=== PATIENT | female | born 1965 | race Caucasian/White ===

== ENCOUNTER 2020-08-15 17:30 | Inpatient (IN) | payer MEDICAID ==
[~2020-08-15] VITALS: Ht 160 cm; Wt 130.3 kg
[2020-08-15] MEDS ORDERED: DESYREL 50MG50 MG PO (17:49)
[2020-08-15] MEDS ORDERED: FOLIC ACID 11 MG/TA1 PO (17:51)
[2020-08-15] MEDS ORDERED: SYNTHROID 0.0.025 MG PO (17:51)
[2020-08-15] MEDS ORDERED: ALDACTONE50 MG PO (17:52)
[2020-08-15] MEDS ORDERED: KLOR-CON M1010 MEQ PO (17:53)
[2020-08-15] MEDS ORDERED: LASIX 20MG TABL20 MG PO (17:53)
[2020-08-15] MEDS ORDERED: NYSTATIN POWDER15 GM TOP (17:53)
[2020-08-15 17:54] VITALS: BP 115/48; PULSE 77; TEMP 98.6
[2020-08-15] MEDS ORDERED: GLUCOPHAGE500 MG/TAB PO (17:54)
[2020-08-15] MEDS ORDERED: PROZAC 20MG20 MG PO (17:55)
[2020-08-15] MEDS ORDERED: LIPITOR 40MG TA40 MG PO (17:55)
--- NOTE | 2020-08-15 19:30 | NUR ---
CALLED [facility] TO CONFIRM A NEGATIVE COVID RESULT. PATIENT TESTED NEGATIVE FOR COVID ON 08/11/20.
[2020-08-15 19:32] LABS: BASO # 0.1 (0.0-0.2); EOS # 0.1 (0.0-0.7); EOS % 2.7 % (0-4.0); GRAN # 3.4 (1.4-6.5); GRAN % 64.4 % (42.2-75.2); LYMPH # 0.9 (1.2-3.4); LYMPH % 17.3 % (20.0-51.0); MEAN CELL VOLUME 103 fl (80.0-100.0); MEAN CORPUSCULAR HGB CONC 31 g/dl (33.0-37.0); MEAN PLATELET VOLUME 9.4 fl (7.4-10.4); MONO # 0.8 (0.1-0.6); MONO % 14.6 % (1.7-9.3); PLATELET COUNT 136 K/mm3 (130-400); RED BLOOD COUNT 2.79 M/mm3 (4.10-5.30); REDCELL DISTRIBUTION WIDTH-CV 16.5 % (11.5-14.5)
[2020-08-15 19:36] LABS: HEMATOCRIT 28.8 % (37.0-47.0); HEMOGLOBIN 8.9 g/dl (12.5-16.0); MEAN CORPUSCULAR HEMOGLOBIN 32 pg (27.0-31.0)
[2020-08-15 19:41] LABS: ALBUMIN 2.7 gm/dL (3.5-5.0); CALCIUM 8.6 mg/dL (8.4-10.2); CREATININE, serum 0.83 (0.52-1.25); POTASSIUM 4.7 mmol/L (3.4-5.0); TOTAL PROTEIN 6.8 gm/dL (6.4-8.2)
[2020-08-15 20:00] VITALS: BP 96/54; PULSE 80; TEMP 97.9
[2020-08-15 20:06] LABS: INR 1.2 (0.8-3.0); PROTHROMBIN TIME 13.2 SECONDS (9.7-12.8)
--- NOTE | 2020-08-15 21:00 | NUR ---
REPORT GIVEN BY RADHA PRIETO. PATIENT DROWSY BUT ORIENTED. SEBLE IN TO SEE PATIENT. PATIENT HAS GENERALIZED EDEMA AND A DISTENDED ABDOMEN. VSS. CALLED RT TO GET PATIENT ON A BIPAP.
--- NOTE | 2020-08-15 21:30 | NUR ---
RT UP TO PUT PATIENT ON BIPAP. PATIENT SLEEPING AND TOLERATING WELL.
[2020-08-16] VITALS (9 sets, daily range): BP systolic 92–163; BP diastolic 43–63; PULSE 68–75; TEMP 97.5–98.7
--- NOTE | 2020-08-16 07:40 | NUR ---
PATIENT GETTING BEDSIDE ECHO
--- NOTE | 2020-08-16 08:00 | NUR ---
PATIENT IS ORIENTED BUT DROWSY THIS AM. VSS WITH TELE INPLACE. PATIENT IS OFF HER HS BI-PAP AND PLACED ON 2L PER NC DURING THE DAY WITH SATS IN MID 90'S. PATIENT DENIES SOA OR CHEST PAIN AT REST. PATIENT'S MOBILITY IS LIMITED BY SEVERE ABD ASCITES AND UPPER & LOWER EXTREMITY EDEMA. GOLDMAN TO DD WITH MOD AMOUNTS OF CLEAR YELLOW URINE NOTED. PATIENT HAS HX OF CHF & COPD. PATIENT ALSO HAS HX OF SEIZURES AND REPORTS SHE TAKES KEPPRA. CALLED PATIENT'S [facility] TO CLARIFY DOSE & FREQUENCY. THIS WAS SHARED WITH HOSPITALIST AND UPDATED IN THE COMPUTER. PATIENT IS SCHEDULED FOR AN ECHO, EGD & PARCENTESIS TODAY. NEURO CHECKS Q4H. AM BS WAS 104, NO SSI REQUIRED. NPO FOR PROCEDURES. AM MEDS GIVEN WITH SIPS. HEAD TO TOE ASSESSMENT COMPLETE. NO OTHER NEEDS. CALL LIGHT IN REACH.
[2020-08-16] MEDS ORDERED: KEPPRA250 MG PO (08:39)
--- NOTE | 2020-08-16 09:57 | NUR ---
HOSPITALIST TEAM AT BEDSIDE ROUNDING.
--- NOTE | 2020-08-16 10:56 | NUR ---
MARIXA met with the patient to discuss discharge plan. The patient lives in [place] with her daughter, Denita Mendez (ph#[phone]), son-in-law (Kemar), sister (Yomaira), and [id number]-[id number] (Garry). She reports needing some assistance with bathing and tolieting and has a walker, wheelchair, bedside commode, and home oxygen from [facility]. She state that she is normally on 2 liters. The patient does not have a primary care provider. MARIXA discussed getting established with a PCP. The patient states states that she would prefer to get one in [place] over [place]. MARIXA provided the patient with a list of the different providers in [place]. The patient states that she does not have a preference and is okay with being set up with anyone. She receives her medications from [facility] and she reports occasional difficulties affording her meds. She states she receives around $700 something for disability. The patient does not have a DPOA-HC, but she was interested in completing one. MARIXA provided the form. The patient designated her daughter, Denita. MARIXA and WINDOW GLAZIER HELPERMike, witnessed the patient's signature. The patient's daughter, Denita, then Facetimed the patient. MARIXA reviewed the above information with Denita. Denita is agreeable with being the patient's DPOA-HC. She gave SW her 's phone number in case we cannot get ahold of her on the others: [phone]. MARIXA provided the patient with the original DPOA-HC and copies. MARIXA placed a copy in the patient's chart. The patient would like to return home upon discharge. Denita reports that her and their family are able to provide assistance to the patient. PT/OT have been ordered. SW to continue to follow.
--- NOTE | 2020-08-16 11:00 | NUR ---
STAFF SETTING UP FOR BEDSIDE PARACENTESIS
[2020-08-16 12:49] LABS: PERITONEAL FLUID RBC 2000 /mm3 (0-0)
--- NOTE | 2020-08-16 14:25 | NUR ---
PATIENT BACK IN ROOM FROM EGD. ORIENTED BUT A LITTLE DROWSY. VSS. DENIES PAIN. HEAD TO TOE ASSESSMENT COMPLETE. PATIENT RESTING IN BED.
[2020-08-16 18:22] LABS: FOLATE (FOLIC ACID) 7.6 ng/mL (7.0-31.4)
--- NOTE | 2020-08-16 19:22 | NUR ---
RECEIVED CHANGE OF SHIFT REPORT FROM DAY SHIFT NURSESURYA.
--- NOTE | 2020-08-16 21:50 | NUR ---
RAC IV SITE WITH EDEMA, SKIN SLIGHTLY WARM TO TOUCH WITH C/O PAIN WHEN AREA PALPATED. ATTEMPTED RESTART IF IV SITE WITH X1 UNSUCCESSFUL VENIPUNCTURE BY THIS NURSE. X2 UNSUCCESSFUL VENIPUNCTURE ATTEMPTS BY HOUSE SUPERVISER. REMAINING IV SITE TO L WRIST WITH SANDOSTATIN INFUSING WITH NO PROBLEMS AT THIS TIME.
[2020-08-17 04:00] VITALS: BP 121/54; PULSE 84; TEMP 98.6
--- NOTE | 2020-08-17 06:56 | NUR ---
CHANGE OF SHIFT REPORT GIVEN TO DAY SHIFT NURSEJANE.
--- NOTE | 2020-08-17 07:00 | NUR ---
Lying in bed with eyes open. Denies pain at this time. Exp wheezes noted in lung tafoya. Patient says that she was suppose to wear the Bipap but she is not able to tolerate it. Is on oxygen at 2L/NC. Patient has 4+ edema noted to abd. Redness noted under pannus. 3+ edema noted to bilat lower extremities, patient says that she has always had the lower extremity and abd swelling. Pickard to dependent drainage. Patient repositioned in bed. Denies additional needs at this time.
[2020-08-17 07:09] LABS: MEAN CELL VOLUME 102 fl (80.0-100.0); MEAN CORPUSCULAR HGB CONC 31 g/dl (33.0-37.0); MEAN PLATELET VOLUME 9.9 fl (7.4-10.4); PLATELET COUNT 141 K/mm3 (130-400); RED BLOOD COUNT 2.35 M/mm3 (4.10-5.30); REDCELL DISTRIBUTION WIDTH-CV 16.3 % (11.5-14.5)
[2020-08-17 07:26] LABS: ALBUMIN 2.5 gm/dL (3.5-5.0); BILIRUBIN,TOTAL 0.9 mg/dL (0.0-1.0); CALCIUM 8.2 mg/dL (8.4-10.2); CREATININE, serum 0.84 (0.52-1.25); POTASSIUM 4.2 mmol/L (3.4-5.0); TOTAL PROTEIN 5.8 gm/dL (6.4-8.2)
[2020-08-17 07:29] LABS: HEMOGLOBIN 7.4 g/dl (12.5-16.0); MEAN CORPUSCULAR HEMOGLOBIN 31 pg (27.0-31.0)
[2020-08-17 08:00] VITALS: BP 130/51; PULSE 72; TEMP 98.7
--- NOTE | 2020-08-17 11:30 | NUR ---
Sitting up in chair watching TV and talking on cell phone. Denies pain. Wants to get back in bed after lunch. Denies additional needs at this time.
[2020-08-17 11:43] VITALS: BP 143/61; PULSE 68; TEMP 98.5
--- NOTE | 2020-08-17 12:11 | NUR ---
Patient assisted from chair to bed with assist of one and use of walker. Gait slow and steady. Patient requires full assist in getting legs into bed. Assisted to comfortable position in the bed. Patient remains on phone with her daughter. Denies needs at this time.
--- NOTE | 2020-08-17 15:06 | NUR ---
Patient IV in left wrist leaking. Due to multiple unsuccessful attempts through night anesthesia contacted to come start IV. Anesthesia in room at this time.
--- NOTE | 2020-08-17 15:20 | NUR ---
SW reviewed PT and PT recommended physical therapy. SW provided patient with options. Choices contacted waiting on responses from [facility], [facility], and [facility]. SW will continue to follow.
--- NOTE | 2020-08-17 15:35 | NUR ---
Keron Balderrama CRNA, able to get 20 gauge in left upper arm. Dc'd IV to left wrist, see intervention. Patient lying in bed talking on phone. Denies pain or needs at this time.
[2020-08-17 15:45] VITALS: BP 136/55; PULSE 67; TEMP 98
--- NOTE | 2020-08-17 18:12 | NUR ---
Sitting up in bed watching TV. Ate all of her supper. Denies pain or needs at this time.
[2020-08-17 19:49] VITALS: BP 127/46; PULSE 69; TEMP 98.4
--- NOTE | 2020-08-17 20:30 | NUR ---
Pt. laying in bed at this time. Pt. is A&OX3, assessment complete. IV to lt. upper arm patent, Sandostatin infusing per orders. Pt. denies pain. Pt. repositioned for comfort. Pt. denies further needs, call light within reach.
[2020-08-18] VITALS (7 sets, daily range): BP systolic 105–132; BP diastolic 36–48; PULSE 64–76; TEMP 97.9–98.7
[2020-08-18 06:02] LABS: BASO # 0.1 (0.0-0.2); BASO % 1.2 % (0.0-2.0); EOS # 0.2 (0.0-0.7); EOS % 3.1 % (0-4.0); GRAN # 3.3 (1.4-6.5); GRAN % 63.9 % (42.2-75.2); LYMPH # 0.8 (1.2-3.4); LYMPH % 15.7 % (20.0-51.0); MEAN CELL VOLUME 100 fl (80.0-100.0); MEAN CORPUSCULAR HGB CONC 31 g/dl (33.0-37.0); MONO # 0.8 (0.1-0.6); MONO % 15.7 % (1.7-9.3); PLATELET COUNT 144 K/mm3 (130-400); RED BLOOD COUNT 2.53 M/mm3 (4.10-5.30); REDCELL DISTRIBUTION WIDTH-CV 16.5 % (11.5-14.5)
[2020-08-18 06:03] LABS: HEMATOCRIT 25.4 % (37.0-47.0); HEMOGLOBIN 7.9 g/dl (12.5-16.0); MEAN CORPUSCULAR HEMOGLOBIN 31 pg (27.0-31.0)
--- NOTE | 2020-08-18 06:08 | NUR ---
Pt. slept well through the night. Pt. denies pain or other needs, call light within reach.
[2020-08-18 06:11] LABS: CALCIUM 7.8 mg/dL (8.4-10.2); CREATININE, serum 0.77 (0.52-1.25); POTASSIUM 4.2 mmol/L (3.4-5.0)
--- NOTE | 2020-08-18 07:27 | NUR ---
Lying in bed with eyes open. Alert and oriented x4. Denies pain. Says that she did not sleep well last night because her allergies are acting up and her eyes were itching. Patient would like to see if she can get some allergy medication ordered for her to take daily, explain we will discuss this with the provider when they make rounds. Patient still has edema to abd, 4+, and bilat lower ext, +3. Pickard to dependent drainage draining clear yellow urine. Oxygen on at 2L/NC. Discuss with the patient that her CO2 level was elevated and that we need to try the Bipap. Patient says that she is willing to try the Bipap after breakfast. Patient says that she was too frustrated last night to use the Bipap due to her eyes itching. Patient denies additional needs at this time.
--- NOTE | 2020-08-18 08:26 | NUR ---
RT in room and applies Bipap. Encourage patient to wear as long as she can tolerate. Patient verbalizes understanding and denies needs.
--- NOTE | 2020-08-18 09:49 | NUR ---
Patient lying in bed with eyes closed. Remains on Bipap at this time. No signs or symptoms of discomfort noted at this time.
--- NOTE | 2020-08-18 11:34 | NUR ---
Patient remains resting in bed with eyes closed on Bipap. No signs or symptoms of discomfort noted at this time.
--- NOTE | 2020-08-18 12:54 | NUR ---
Patient daughter calls to get update. Update provided. Phone provided to the patient so she can talk to her daughter. Patient sitting up in bed watching TV. Denies pain or needs at this time. Oxygen is on at 2L/NC.
--- NOTE | 2020-08-18 14:23 | NUR ---
Patient requests to get up and use BSC. Patient assisted out of bed with assist of two and use of walker. Patient initially had hard time sitting up on edge of bed. Patient has extra large soft formed brown BM. Patient cleaned. Patient ambulates to chair. Assisted to comfortable position in the recliner. Bed linens were changed. Window blinds opened. Patient says that she feels better after she was able to get some sleep. Patient says that she knows when she goes home she will need to get up in the morning and get out of bed and go into another room so that she is not staying in bed all day. Patient says that she lives with her daughter, son, and brother and they will all be willing to help her get up and move around the house. Patient denies needs at this time.
--- NOTE | 2020-08-18 16:29 | NUR ---
Patient requests to get back in bed. Patient stands with assist of one and standby assist of one. Patient uses walker to transfer to bed. Assisted to comfortable position in the bed. Oxygen on at 2L/NC. Patient denies needs at this time.
--- NOTE | 2020-08-18 17:15 | NUR ---
Patient says that her allergies are bothering her and her eyes keep watering. Asks if Dr. Ludwig placed the order for Benadryl and if so she would like some. Review orders and do not see that the Benadryl was ordered. Explained that I would discuss with the provider and see what we could do. Contacted LEXUS Wood, and she will review and let us know.
--- NOTE | 2020-08-18 17:34 | NUR ---
Administer Bendadryl and Claritin as prescribed. Explain to the patient that Benadryl was a one time order and the Claritin will be given daily. Patient verbalizes understanding and denies further needs.
--- NOTE | 2020-08-18 21:09 | NUR ---
Pt. laying in bed at this time. Pt. is A&OX3, assessment complete. INT to lt. upper arm patent. Pickard catheter to DD, clear yellow urine noted. Pt. denies pain or other needs, call light within reach.
[2020-08-19 01:28] VITALS: BP 101/41; PULSE 62; TEMP 98.7
[2020-08-19 05:14] VITALS: BP 102/34; BP 102/43; PULSE 67; TEMP 97.8
--- NOTE | 2020-08-19 08:00 | NUR ---
PATIENT IS A&O. VSS WITH TELE INPLACE. PATIENT ON BI-PAP AT HS, NOW OFF AND ON 2L PER NC WITH SATS IN MID 90'S. PATIENT DENIES SOA. A&P LUNG BASES DEMINISHED. NO COUGH NOTED. ABD DISTENDED WITH NOTED ASCITES AND +3 BLE EDEMA. +1 PEDAL PULSES. LEFT UA IV TO INT. GOLDMAN TO DD WITH MOD AMOUNTS OF CLEAR YELLOW URINE NOTED. SEIZURE PADS INPLACE DUE TO HX. PATIENT ON KEPPRA. HEAD TO TOE ASSESSMENT COMPLETE. AM MEDS GIVEN. PT/OT CONSULTED. NO OTHER NEEDS AT THIS TIME. CALL LIGHT IN REACH.
[2020-08-19 08:42] LABS: MEAN CELL VOLUME 101 fl (80.0-100.0); MEAN CORPUSCULAR HGB CONC 32 g/dl (33.0-37.0); MEAN PLATELET VOLUME 9.8 fl (7.4-10.4); PLATELET COUNT 144 K/mm3 (130-400); RED BLOOD COUNT 2.68 M/mm3 (4.10-5.30); REDCELL DISTRIBUTION WIDTH-CV 16.6 % (11.5-14.5)
[2020-08-19 08:48] VITALS: BP 109/24; PULSE 63; TEMP 98.8
[2020-08-19 08:51] LABS: ALBUMIN 2.2 gm/dL (3.5-5.0); BILIRUBIN,TOTAL 0.9 mg/dL (0.0-1.0); CALCIUM 7.8 mg/dL (8.4-10.2); CREATININE, serum 1.03 (0.52-1.25); MAGNESIUM 1.6 mg/dL (1.6-2.3); POTASSIUM 4.1 mmol/L (3.4-5.0); TOTAL PROTEIN 5.3 gm/dL (6.4-8.2)
[2020-08-19 08:56] LABS: HEMOGLOBIN 8.5 g/dl (12.5-16.0); MEAN CORPUSCULAR HEMOGLOBIN 32 pg (27.0-31.0)
[2020-08-19 12:26] VITALS: BP 115/50; PULSE 64; TEMP 98.1
--- NOTE | 2020-08-19 14:17 | NUR ---
PT is recommending home with family support and home health. The patient's insurance is Medicaid. Medicaid does not cover home health PT/OT. MARIXA met with the patient to discuss this. The patient's daughter, Denita, was on her room phone. MARIXA discussed outpatient PT/OT. The patient reports that she would be interested in this at [facility] and that family could take her to her appointments. She states that she would still be interested in getting set up with a PCP is [facility]. MARIXA then contacted the patient's daughter, Denita, and reviewed the above information. Denita states that she cannot wait for the patient to return home and is agreeable to the above plan. MARIXA contacted [facility]. They are not taking any new patients. MARIXA contacted [facility] and they are not taking any more Medicaid patients. MARIXA contacted [facility] and left a message with Dr. Townsend's RN. MARIXA awaiting to here back from them.
[2020-08-19 15:21] VITALS: BP 132/50; PULSE 68; TEMP 98.5
[2020-08-19 19:31] VITALS: BP 102/42; PULSE 64; TEMP 98.5
--- NOTE | 2020-08-19 20:30 | NUR ---
Patient resting in bed. No complaints of pain. Bedtime meds given. Rt up to put BIPAP on patient. No other needs at this time. Call light is within reach.
[2020-08-20] VITALS: BP 115/42; PULSE 65; TEMP 97.7
[2020-08-20 04:00] VITALS: BP 128/50; PULSE 66; TEMP 98.5
[2020-08-20 07:50] LABS: MEAN CELL VOLUME 102 fl (80.0-100.0); MEAN CORPUSCULAR HGB CONC 31 g/dl (33.0-37.0); MEAN PLATELET VOLUME 10.3 fl (7.4-10.4); PLATELET COUNT 166 K/mm3 (130-400); REDCELL DISTRIBUTION WIDTH-CV 16.9 % (11.5-14.5)
[2020-08-20 07:52] LABS: HEMATOCRIT 25.5 % (37.0-47.0); MEAN CORPUSCULAR HEMOGLOBIN 32 pg (27.0-31.0)
[2020-08-20 08:02] LABS: ALBUMIN 2.2 gm/dL (3.5-5.0); BILIRUBIN,TOTAL 0.9 mg/dL (0.0-1.0); CALCIUM 7.8 mg/dL (8.4-10.2); CREATININE, serum 0.98 (0.52-1.25); MAGNESIUM 1.7 mg/dL (1.6-2.3); TOTAL PROTEIN 5.3 gm/dL (6.4-8.2)
[2020-08-20 09:07] VITALS: BP 135/54; PULSE 66; TEMP 98.1
[2020-08-20 11:16] VITALS: BP 132/47; PULSE 66; TEMP 98.3
--- NOTE | 2020-08-20 11:25 | NUR ---
PATIENT WILL DISCHARGE HOME LATER TODAY. DC'D TELE. DC'D IV SITE AND COVERED WITH [employer]. GOLDMAN DC'D. PATIENT GIVEN POST GOLDMAN DC EDUCATION. PATIENT WILL NEED TO VOID AND MEET DISCHARGE CRITERIA
[2020-08-20] MEDS ORDERED: CLARITIN 1010 MG/TAB PO (11:52)
[2020-08-20] MEDS ORDERED: SYNTHROID0.05 MG/TA PO (11:53)
[2020-08-20] MEDS ORDERED: PROTONIX 40MG T40 MG PO (11:53)
--- NOTE | 2020-08-20 14:30 | NUR ---
High School Football Coach attended clinical rounds with the team and patient is ready for discharge today. MARIXA met with patient who states she is agreeable to have primary care set up anywhere in [place]. Patient lives in [place] but does not want primary care set up there. Patient is also agreeable to have outpatient PT/OT set up at [facility]. MARIXA contacted [facility] to follow up about having patient set up with Dr. Townsend. MARIXA scheduled new patient appointment with Dr. Townsend for 10/22/20 @ 1300 and a hospital follow up appointment with Dr. Townsend's PA, Melba Casanova on 08/27/20 @ 1000. MARIXA faxed records to Dr. Townsend's office at fax #[phone]. MARIXA then contacted [facility] to set up outpatient PT/OT. MARIXA was advised that patient's insurance requires prior authorization. [facility] will contact patient once they have authorization to set up first appointment. MARIXA provided patient and patient's daughter, Denita's contact information to [facility]. MARIXA then faxed referral and discharge orders to [facility] at fax#[phone]. MARIXA contacted patient's daughter, Denita to provide update on the above information. Denita states she will be here this afternoon to picker box operator patient. MARIXA provided appointments to community planning technician to be added to discharge paperwork. No additional needs at this time.
--- NOTE | 2020-08-20 15:05 | NUR ---
PATIENT'S FAMILY NOW HERE. PATIENT GIVEN DISCHARGE INSTRUCTIONS. RN ANSWERED ALL QUESTIONS/CONCERNS. PATIENT DISCHARGED.
== END 2020-08-20 15:05 | disposition home or self-care (01) | DRG 377 ==
LOC: SURG 17:30
PROVIDERS: Internal Medicine Gastroenterology; Physician Assistant; ADMIT Hospitalist
PROC: 0DJ08ZZ Inspection of Upper Intestinal Tract, Via Natural or Artificial Opening Endoscopic (ICD-10-PCS; principal; 2020-08-16 12:15)
DX: K29.71 Gastritis, unspecified, with bleeding (principal); I50.33 Acute on chronic diastolic (congestive) heart failure; J96.21 Acute and chronic respiratory failure with hypoxia; K76.6 Portal hypertension; R18.8 Other ascites; E87.1 Hypo-osmolality and hyponatremia; E87.3 Alkalosis; N39.0 Urinary tract infection, site not specified; K74.60 Unspecified cirrhosis of liver; D53.9 Nutritional anemia, unspecified; J44.9 Chronic obstructive pulmonary disease, unspecified; B19.20 Unspecified viral hepatitis C without hepatic coma; Z20.822 Contact with and (suspected) exposure to COVID-19; E03.9 Hypothyroidism, unspecified; E11.9 Type 2 diabetes mellitus without complications; F32.9 Major depressive disorder, single episode, unspecified; E78.5 Hyperlipidemia, unspecified; G40.909 Epilepsy, unspecified, not intractable, without status epilepticus; N20.0 Calculus of kidney; I25.10 Atherosclerotic heart disease of native coronary artery without angina pectoris; Z95.5 Presence of coronary angioplasty implant and graft
CPT/HCPCS: 99223-AI; 99232-AI; 99233-AI; 99239; C9113; J0696; J1650; J1815; J1940; J2354; J2704; J3475; J7040; P9047

== ENCOUNTER 2020-09-16 17:56 | Inpatient (IN) | payer MEDICAID ==
[~2020-09-16] VITALS: Ht 160 cm; Wt 135.8 kg
[~2020-09-16 17:56] MED LIST: ALDACTONE50 MG PO; CLARITIN 1010 MG/TAB PO; DESYREL 50MG50 MG PO; FOLIC ACID 11 MG/TA1 PO; GLUCOPHAGE500 MG/TAB PO; KEPPRA250 MG PO; KLOR-CON M1010 MEQ PO; LASIX 20MG TABL20 MG PO; LIPITOR 40MG TA40 MG PO; NYSTATIN POWDER15 GM TOP; PROTONIX 40MG T40 MG PO; PROZAC 20MG20 MG PO; SYNTHROID 0.0.025 MG PO; SYNTHROID0.05 MG/TA PO
[2020-09-16 18:34] LABS: BASO % 0.8 % (0.0-2.0); EOS # 0.1 (0.0-0.7); EOS % 1.9 % (0-4.0); GRAN # 3.9 (1.4-6.5); GRAN % 72.4 % (42.2-75.2); LYMPH # 0.8 (1.2-3.4); LYMPH % 14.5 % (20.0-51.0); MEAN CELL VOLUME 107 fl (80.0-100.0); MEAN CORPUSCULAR HGB CONC 30 g/dl (33.0-37.0); MEAN PLATELET VOLUME 9.8 fl (7.4-10.4); MONO # 0.5 (0.1-0.6); MONO % 10.2 % (1.7-9.3); PLATELET COUNT 205 K/mm3 (130-400); RED BLOOD COUNT 2.91 M/mm3 (4.10-5.30); REDCELL DISTRIBUTION WIDTH-CV 15.9 % (11.5-14.5)
[2020-09-16 18:42] LABS: HEMATOCRIT 31.1 % (37.0-47.0); HEMOGLOBIN 9.3 g/dl (12.5-16.0); MEAN CORPUSCULAR HEMOGLOBIN 32 pg (27.0-31.0)
[2020-09-16 18:53] LABS: ALANINE AMINOTRANSFERASE 20 U/L (4-34); ALBUMIN 3.2 gm/dL (3.5-5.0); ALKALINE PHOSPHATASE 122 U/L (50-136); ANION GAP 4 mmol/L (7-16); AST,SGOT 38 U/L (15-37); BLOOD UREA NITROGEN 21 mg/dL (7-17); CALCIUM 8.7 mg/dL (8.4-10.2); CARBON DIOXIDE 36 mmol/L (22-30); CHLORIDE 101 mmol/L (98-107); CREATININE, serum 0.91 (0.52-1.25); GLUCOSE 145 mg/dL (74-106); LIPASE 87 U/L (23-300); POTASSIUM 4.2 mmol/L (3.4-5.0); SODIUM 141 mmol/L (137-145); TOTAL PROTEIN 7.8 gm/dL (6.4-8.2)
[2020-09-16 18:54] LABS: ALCOHOL(ethanol),MEDICAL < 10 mg/dL
[2020-09-16 19:05] LABS: TROPONIN-I < 0.012 ng/mL (0.000-0.035)
[2020-09-16 21:48] LABS: INR 1.1 (0.8-3.0); PROTHROMBIN TIME 12.6 SECONDS (9.7-12.8)
--- NOTE | 2020-09-16 22:00 | NUR ---
Ok'd per hospitalist to draw Keppra levels with morning labs.
--- NOTE | 2020-09-16 22:57 | NUR ---
Arrived to the unit via stretcher; patient alert and oriented and cooperative with staff. Dsypneic with activity but otherwise in no distress. Attached to all monitors; VS within normal limits. Assessment complete and all questions and concerns addressed. Replaced BIPAP after finishing with assessments and medication. Call light left within reach.
--- NOTE | 2020-09-16 23:55 | NUR ---
Patient stable and resting comfortably in bed. Pt has an order for an abdominal CT. Discussed with the hospitalist and can wait until the am to obtain the scan.
[2020-09-17] VITALS: BP 97/58; PULSE 82; TEMP 98.3
--- NOTE | 2020-09-17 01:43 | NUR ---
Has had a total of 700 ml of urine out since placing palacios in the ER. Last several hours urine output has been decreasing. Last hour patient only had 20ml out in one hour. BP systolic in the 90's with MAPs in the 70's. Hospitalist notified. Will hold overnight lasix dose at this time.
[2020-09-17 04:30] VITALS: BP 101/59; PULSE 80; TEMP 98.3
[2020-09-17 06:00] LABS: EOS # 0.1 (0.0-0.7); EOS % 3.1 % (0-4.0); GRAN # 2.3 (1.4-6.5); GRAN % 54.7 % (42.2-75.2); LYMPH # 1.1 (1.2-3.4); LYMPH % 25.5 % (20.0-51.0); MEAN CELL VOLUME 108 fl (80.0-100.0); MEAN CORPUSCULAR HGB CONC 30 g/dl (33.0-37.0); MEAN PLATELET VOLUME 9.8 fl (7.4-10.4); MONO # 0.7 (0.1-0.6); MONO % 15.5 % (1.7-9.3); PLATELET COUNT 159 K/mm3 (130-400); RED BLOOD COUNT 2.26 M/mm3 (4.10-5.30); REDCELL DISTRIBUTION WIDTH-CV 16.4 % (11.5-14.5)
[2020-09-17 06:14] LABS: ALBUMIN 2.4 gm/dL (3.5-5.0); BILIRUBIN,TOTAL 1.1 mg/dL (0.0-1.0); CALCIUM 8.2 mg/dL (8.4-10.2); CREATININE, serum 0.92 (0.52-1.25); POTASSIUM 4.2 mmol/L (3.4-5.0); TOTAL PROTEIN 6.1 gm/dL (6.4-8.2)
[2020-09-17 06:18] LABS: HEMATOCRIT 24.4 % (37.0-47.0); HEMOGLOBIN 7.3 g/dl (12.5-16.0); MEAN CORPUSCULAR HEMOGLOBIN 32 pg (27.0-31.0)
[2020-09-17 06:45] LABS: TSH w REFLEX 65.5 uIU/mL (0.465-4.680)
[2020-09-17 08:00] VITALS: BP 112/59; PULSE 81; TEMP 97.7
[2020-09-17 10:53] LABS: ARTERIAL BLD GAS O2 SATURATION 94.5 % (92-100); ARTERIAL BLD GAS TCO2 CT 37.5; ARTERIAL BLOOD GAS BASE EXCESS 9.6 (-2-2); ARTERIAL BLOOD GAS HCO3 35.6 meq/L (22-26); ARTERIAL BLOOD GAS PO2 75.9 mmHg (80-100)
[2020-09-17 12:00] VITALS: BP 128/55; PULSE 84; TEMP 97.8
--- NOTE | 2020-09-17 13:40 | NUR ---
Patient was sleeping when social group worker attempted to meet. Worker left message with patient's daughter, Denita, to call regarding discharge planning discussions.
[2020-09-17 14:24] LABS: HEMATOCRIT 24.4 % (37.0-47.0); HEMOGLOBIN 7.4 g/dl (12.5-16.0)
[2020-09-17 16:00] VITALS: BP 130/56; PULSE 80; TEMP 98
[2020-09-17 16:32] LABS: PERITONEAL -POLYMORPHONUCLEAR 9.5 % (0-25); PERITONEAL FLUID RBC 0 /mm3 (0-0)
[2020-09-17 20:00] VITALS: BP 113/62; PULSE 77; TEMP 98
--- NOTE | 2020-09-17 21:30 | NUR ---
Assisted with bed bath and repositioning. Patient alert and oriented and cooperative with staff. Denies any shortness of breath and states that she feels better after the paracentesis today. Call light left within reach; will continue to monitor.
[2020-09-18] VITALS (11 sets, daily range): BP systolic 92–146; BP diastolic 46–92; PULSE 76–85; TEMP 98–99.1
--- NOTE | 2020-09-18 03:39 | NUR ---
BP has been trending down; Systolic's 80's-90's. Dr. Gooden with [facility] notified. Will administer 1 bag of albumin. Will continue to monitor.
[2020-09-18 05:43] LABS: BASO % 0.8 % (0.0-2.0); EOS # 0.1 (0.0-0.7); EOS % 2.1 % (0-4.0); GRAN # 2.3 (1.4-6.5); GRAN % 61.7 % (42.2-75.2); LYMPH # 0.8 (1.2-3.4); LYMPH % 20.5 % (20.0-51.0); MEAN CELL VOLUME 105 fl (80.0-100.0); MEAN CORPUSCULAR HGB CONC 30 g/dl (33.0-37.0); MEAN PLATELET VOLUME 9.8 fl (7.4-10.4); MONO # 0.6 (0.1-0.6); MONO % 14.6 % (1.7-9.3); PLATELET COUNT 127 K/mm3 (130-400); REDCELL DISTRIBUTION WIDTH-CV 16.3 % (11.5-14.5)
[2020-09-18 05:52] LABS: HEMATOCRIT 20.9 % (37.0-47.0); HEMOGLOBIN 6.3 g/dl (12.5-16.0); MEAN CORPUSCULAR HEMOGLOBIN 32 pg (27.0-31.0)
[2020-09-18 05:56] LABS: ALBUMIN 2.6 gm/dL (3.5-5.0); BILIRUBIN,TOTAL 0.7 mg/dL (0.0-1.0); POTASSIUM 4.3 mmol/L (3.4-5.0); TOTAL PROTEIN 5.6 gm/dL (6.4-8.2)
--- NOTE | 2020-09-18 06:08 | NUR ---
Notified Dr. Gooden of critical HBG. Received order to transfuse 1 unit of PRBC's. Lab notified.
--- NOTE | 2020-09-18 10:10 | NUR ---
Gave report to RADHA Espinoza who will be taking patient on the medical floor ro room 356. Will start the blood transfusion then send patient up.
--- NOTE | 2020-09-18 11:28 | NUR ---
Patient was sleeping. Director Of Student Financial Services prayed for patient while standing outside of door.
--- NOTE | 2020-09-18 12:46 | NUR ---
patient transfered to medical bed, medical RN at bedside with DARIANA. Patient then taken upstairs to new room. SHe is on tele and oxygen. just received 1 unit of PRBC's and finished her lunch.
--- NOTE | 2020-09-18 13:00 | NUR ---
We brought patient up to her room from ICU. Oriented patient to room. She denies pain and nausea at this time. Pickard secured to leg, urine output yellow and clear. Explained plan of care. Discussed the fluid restriction. No questions verbalized. No other changes at this time. Call light within reach.
[2020-09-18 13:53] LABS: HEMATOCRIT 24.1 % (37.0-47.0); HEMOGLOBIN 7.5 g/dl (12.5-16.0)
--- NOTE | 2020-09-18 14:40 | NUR ---
MARIXA contacted the patient's daughter, Denita (ph#[phone]), to discuss discharge plan. The patient lives in [place] with her daughter (Denita), two sisters, and brother. Denita reports that the patient needs assistance with ADLs and has a wheelchair. Denita reports that the patient is completing paperwork to have services through [address] [place] [address]. She states that Jan Farris is going to be the patient's sugarcane research technician through [facility]. The patient's PCP is Dr. Any Townsend and she receives her medications from [facility]. Denita reports no difficulties obtaining her meds. The patient's DPOA-HC is in EMR and it designates Denita. Denita reports no concerns with the patient returning back home upon discharge. The patient had been set up with outpatient therapy at [facility]. Denita reports that they had to cancel the appointments, but that they plan on rescheduling the appointments when the patient discharges. Denita reports that the patient's wheelchair is also starting to wear down and she would be interested in getting the patient a new wheelchair.
--- NOTE | 2020-09-18 20:00 | NUR ---
Assessment complete. Patient is currently sleeping in bed with BIPAP on. She is drowsy but oriented; She wears 3 liters oxygen when taken off of BIPAP. HR is normal/regular and lung sounds are distant due to obesity. Bilater lower extremity edema is present with 1+ edema; Her abdomen is also edematous. Pulses are 2/2. Patient has no complaints of pain. Her daughter Christine is contacted, per request, and updated on patient's status. Call light in reach.
[2020-09-19 00:08] VITALS: BP 100/52; PULSE 77; TEMP 97.8
--- NOTE | 2020-09-19 02:58 | NUR ---
Patient complains of headache at this time. 650 mg PRN Tylenol administered. She also requests to switch from BIPAP to 3 liters nasal cannula. Pickard draining dark yellow urine. Call light in reach.
[2020-09-19 04:30] VITALS: BP 85/44; PULSE 78; TEMP 98.1
[2020-09-19 05:40] VITALS: BP 116/50; PULSE 76
[2020-09-19 07:33] LABS: BASO % 0.5 % (0.0-2.0); EOS # 0.1 (0.0-0.7); EOS % 2.3 % (0-4.0); GRAN # 2.8 (1.4-6.5); GRAN % 64.5 % (42.2-75.2); HEMATOCRIT 24.2 % (37.0-47.0); HEMOGLOBIN 7.5 g/dl (12.5-16.0); LYMPH # 0.8 (1.2-3.4); LYMPH % 18.3 % (20.0-51.0); MEAN CELL VOLUME 103 fl (80.0-100.0); MEAN CORPUSCULAR HEMOGLOBIN 32 pg (27.0-31.0); MEAN CORPUSCULAR HGB CONC 31 g/dl (33.0-37.0); MEAN PLATELET VOLUME 10.2 fl (7.4-10.4); MONO # 0.6 (0.1-0.6); MONO % 14.2 % (1.7-9.3); PLATELET COUNT 134 K/mm3 (130-400); RED BLOOD COUNT 2.35 M/mm3 (4.10-5.30); REDCELL DISTRIBUTION WIDTH-CV 17.2 % (11.5-14.5)
[2020-09-19 07:45] LABS: CREATININE, serum 1.08 (0.52-1.25); POTASSIUM 4.2 mmol/L (3.4-5.0)
[2020-09-19 08:47] VITALS: BP 95/57; PULSE 78; TEMP 98.3
--- NOTE | 2020-09-19 09:26 | NUR ---
SHIFT ASSESSMENT COMPLETED AT THIS TIME. AM MEDICATIONS ADMINISTERED. CALL LIGHT WITHIN REACH. NO NEEDS AT THIS TIME.
[2020-09-19 11:54] VITALS: BP 113/67; PULSE 80; TEMP 98.4
--- NOTE | 2020-09-19 12:03 | NUR ---
First visit from the sports physiologist. No needs right now.
[2020-09-19] MEDS ORDERED: LASIX 40MG TABL40 MG PO (12:17)
[2020-09-19] MEDS ORDERED: ANORO IH (12:18)
[2020-09-19] MEDS ORDERED: SYNTHROID0.088 MG/T PO (12:43)
--- NOTE | 2020-09-19 14:00 | NUR ---
PATIENT VOIDING SUFFICIENTLY POST GOLDMAN REMOVAL. RN STUDENT REMOVED INT PRIOR TO PATIENT DISCHARGE.
--- NOTE | 2020-09-19 15:42 | NUR ---
The patient is ready to d/c today. MARIXA followed up with the patient's daughter, Denita, Denita would like to pursue with the patient returning home and getting a new wheelchair. MARIXA discussed resuming outpatient PT/OT. Denita was agreeable to this. MARIXA contacted [facility]. They did not have a wheelchair in the patient's size. MARIXA contacted Jessika at [facility]. Jessika reports that they have a 28 inch wheelchair. It does not fit through standard doors though. MARIXA updated the patient's daughter, Denita. Denita would like to pursue with the 28 inch wheelchair. MARIXA faxed and emailed the wheelchair order to [facility]. Tarsha, at [facility], reports that they will deliver the wheelchair to the patient's room before 1600 today. MARIXA updated the patient's RN and Denita. Denita would prefer for MARIXA to set up the outpatient therapy appointments. MARIXA contacted [facility] therapy center and secured the patient and outpatient OT appointment on 10/02 at 1230 and a PT appointment on 1345. MARIXA informed the community liaison officer of the appointments. No additional needs at this time.
--- NOTE | 2020-09-19 16:35 | NUR ---
DISCHARGE INSTRUCTIONS REVIEWED WITH PATIENT. QUESTIONS SOUGHT AND ANSWERED. PATIENT PERSONAL BELONGINGS GATHERED. PATIENT TAKEN TO PERSONAL VEHICLE VIA WHEELCHAIR BY MEDICAL STAFF. PATIENT DISCHARGED.
== END 2020-09-19 16:35 | disposition home health service (06) | DRG 432 ==
LOC: COL.ER 17:56 → MEDICAL 18:50 → ICU 18:50 → MEDICAL 09-18 13:06
PROVIDERS: Emergency Medicine; Student in an Organized Health Care Education/Training Program; ADMIT Hospitalist
PROC: 0W9G30Z Drainage of Peritoneal Cavity with Drainage Device, Percutaneous Approach (ICD-10-PCS; principal; 2020-09-17)
DX: K74.60 Unspecified cirrhosis of liver (principal); J96.21 Acute and chronic respiratory failure with hypoxia; I50.33 Acute on chronic diastolic (congestive) heart failure; R18.8 Other ascites; K76.6 Portal hypertension; E66.2 Morbid (severe) obesity with alveolar hypoventilation; Z68.43 Body mass index [BMI] 50.0-59.9, adult; E03.9 Hypothyroidism, unspecified; B19.20 Unspecified viral hepatitis C without hepatic coma; Z20.822 Contact with and (suspected) exposure to COVID-19; I11.0 Hypertensive heart disease with heart failure; E11.9 Type 2 diabetes mellitus without complications; E78.5 Hyperlipidemia, unspecified; I25.10 Atherosclerotic heart disease of native coronary artery without angina pectoris; J44.9 Chronic obstructive pulmonary disease, unspecified; D53.9 Nutritional anemia, unspecified; F32.9 Major depressive disorder, single episode, unspecified; G40.909 Epilepsy, unspecified, not intractable, without status epilepticus; Z79.84 Long term (current) use of oral hypoglycemic drugs; Z87.891 Personal history of nicotine dependence; Z88.6 Allergy status to analgesic agent
CPT/HCPCS: 99223-AI; 99232-AI; 99233-AI; 99239; J1650; J1940; P9016; P9047; Q9967

== ENCOUNTER 2020-10-04 20:56 | Inpatient (IN) | payer MEDICAID ==
[~2020-10-04] VITALS: Ht 160 cm; Wt 148.1 kg
[~2020-10-04 20:56] MED LIST changes: +ANORO IH; +LASIX 40MG TABL40 MG PO; +SYNTHROID0.088 MG/T PO
[2020-10-04 21:41] LABS: BASO # 0.1 (0.0-0.2); BASO % 0.8 % (0.0-2.0); EOS # 0.1 (0.0-0.7); GRAN # 5.1 (1.4-6.5); GRAN % 71.6 % (42.2-75.2); HEMOGLOBIN 11.3 g/dl (12.5-16.0); LYMPH # 1.1 (1.2-3.4); LYMPH % 16.1 % (20.0-51.0); MEAN CELL VOLUME 105 fl (80.0-100.0); MEAN CORPUSCULAR HEMOGLOBIN 33 pg (27.0-31.0); MEAN CORPUSCULAR HGB CONC 31 g/dl (33.0-37.0); MEAN PLATELET VOLUME 9.5 fl (7.4-10.4); MONO # 0.7 (0.1-0.6); MONO % 9.4 % (1.7-9.3); PLATELET COUNT 224 K/mm3 (130-400); RED BLOOD COUNT 3.47 M/mm3 (4.10-5.30); REDCELL DISTRIBUTION WIDTH-CV 15.9 % (11.5-14.5)
[2020-10-04 21:43] LABS: HEMATOCRIT 36.5 % (37.0-47.0)
[2020-10-04 21:50] LABS: ALBUMIN 3.3 gm/dL (3.5-5.0); BILIRUBIN,TOTAL 1.1 mg/dL (0.0-1.0); CALCIUM 9.1 mg/dL (8.4-10.2); CREATININE, serum 1.2 (0.52-1.25); POTASSIUM 4.7 mmol/L (3.4-5.0); TOTAL PROTEIN 7.9 gm/dL (6.4-8.2)
[2020-10-04 21:53] LABS: INR 1.1 (0.8-3.0); PROTHROMBIN TIME 11.8 SECONDS (9.7-12.8)
[2020-10-04 21:55] LABS: PARTIAL THROMBOPLASTIN TIME 33.9 SECONDS (26.0-37.0)
[2020-10-05 00:54] VITALS: BP 102/58; PULSE 78; TEMP 97.8
--- NOTE | 2020-10-05 02:14 | NUR ---
Arrived on unit, O2 @2L per nc, shob noted on exertion, oriented to room, call march, denies needs at this time, stable condition
[2020-10-05 03:22] VITALS: BP 102/59; PULSE 87; TEMP 98.1
[2020-10-05 07:41] VITALS: BP 89/47; PULSE 80; TEMP 97.8
[2020-10-05 09:11] LABS: IRON,SERUM 53 ug/dL (35-150)
[2020-10-05 09:18] LABS: TOTAL IRON BINDING CAPACITY 197 ug/dL (265-497)
[2020-10-05 10:22] VITALS: BP 99/64; PULSE 86; TEMP 97.9
--- NOTE | 2020-10-05 11:53 | NUR ---
SW met with patient about DC plan. Patient reports that she resides in [place] and has support with her brother Osito at home. Patient reports that she uses a walker, cane, and wheelchair for mobility. Patient reports that she has Oxygen at home 3.5 liters provided through [facility]. Patient reports that her PCP is Joceline Hardwick and she uses [facility] for RX. Declines needing [facility]. EMR contact is Alannah . Will continue to follow for care support.
[2020-10-05 16:00] VITALS: BP 102/56; BP 102/65; PULSE 86; TEMP 98
[2020-10-05 16:41] LABS: PERITONEAL -POLYMORPHONUCLEAR 9.8 % (0-25); PERITONEAL FLUID RBC 0 /mm3 (0-0)
--- NOTE | 2020-10-05 16:54 | NUR ---
Pt assessment completed and charted, medications administered per oct, pt asleep this morning during bedside shift report and slept most of morning d/t being tired and late arrival to med floor last night. During assessment, Pt A&O, appears SOB, breathing is slightly labored, on 4L NC. Pt unable to sit up or roll to listen to all lung tafoya, anterior UL CTA. LAC INT IV flushes well w/o issue. Pt has generalized edema, obese, BS active. BLE 4+ edema. pt has palacios in place. Pt went down for paracentesis this afternoon, 16.6L removed. Pt has had soft BPs today, asymptomatic. No further needs at this time.
[2020-10-05 19:45] LABS: MUCOUS Present /lpf; PH 5 (5-8); SQUAMOUS EPITHELIAL 0-2 /hpf; URINE APPEARANCE Hazy; URINE BACTERIA Rare /hpf; URINE BILIRUBIN Negative (NEGATIVE); URINE BLOOD 2+ (NEGATIVE); URINE COLOR Yellow; URINE GLUCOSE Negative (NEGATIVE); URINE KETONE Negative (NEGATIVE); URINE LEUKOCYTE ESTERASE Trace (NEGATIVE); URINE NITRATE Negative (NEGATIVE); URINE PROTEIN(semi-quant) Negative (NEGATIVE); URINE RBC 20-50 /hpf; URINE UROBILINOGEN >=4.0 mg/dL (NEGATIVE)
[2020-10-05 19:49] LABS: COLLECTION METHOD CLEAN CATCH
--- NOTE | 2020-10-05 19:51 | NUR ---
Awake, alert, oriented x 4, sitting up in bed, resting quietly, states she is tired, telemetry ongoing, recieving albumin at this time, tolerating well, denies pain, call march w/i reach
[2020-10-05 20:07] VITALS: BP 91/46; PULSE 87; TEMP 98.9
[2020-10-06] VITALS (8 sets, daily range): BP systolic 85–111; BP diastolic 47–56; PULSE 81–88; TEMP 98–98.6
--- NOTE | 2020-10-06 05:30 | NUR ---
Call placed to Ree Solano reported consistent low blood pressures, no new orders, continue to monitor, patient wakes easily, alert and oriented, continue with telemety monitoring, no distress noted.
[2020-10-06 06:55] LABS: CHOLESTEROL RISK RATIO 4.2
[2020-10-06 07:45] LABS: HIV 1/2 Antibodies Non-Reactive; HIV-1p24 Antigen Non-Reactive
--- NOTE | 2020-10-06 08:00 | NUR ---
Patient laying in bed watching TV. A&Ox4. VSS, BP hypotensive, doctor aware and patient asymptomatic. 3L NC O2, no reported SOB. IV CDI. Denies pain and discomfort. No further needs expressed from the patient. Call light within reach
[2020-10-06 09:31] LABS: BILIRUBIN,TOTAL 1.1 mg/dL (0.0-1.0); CALCIUM 8.5 mg/dL (8.4-10.2); CREATININE, serum 1.12 (0.52-1.25); TOTAL PROTEIN 5.9 gm/dL (6.4-8.2)
[2020-10-06 09:56] LABS: BASO % 0.9 % (0.0-2.0); EOS # 0.1 (0.0-0.7); GRAN # 3.1 (1.4-6.5); GRAN % 68.3 % (42.2-75.2); HEMATOCRIT 25.1 % (37.0-47.0); HEMOGLOBIN 7.6 g/dl (12.5-16.0); LYMPH # 0.8 (1.2-3.4); LYMPH % 18.6 % (20.0-51.0); MEAN CELL VOLUME 108 fl (80.0-100.0); MEAN CORPUSCULAR HEMOGLOBIN 33 pg (27.0-31.0); MEAN CORPUSCULAR HGB CONC 30 g/dl (33.0-37.0); MEAN PLATELET VOLUME 9.5 fl (7.4-10.4); MONO # 0.4 (0.1-0.6); MONO % 9.8 % (1.7-9.3); PLATELET COUNT 136 K/mm3 (130-400); RED BLOOD COUNT 2.33 M/mm3 (4.10-5.30); REDCELL DISTRIBUTION WIDTH-CV 16.4 % (11.5-14.5)
[2020-10-06 15:03] LABS: HEMATOCRIT 24.5 % (37.0-47.0); HEMOGLOBIN 7.5 g/dl (12.5-16.0)
[2020-10-06 16:10] LABS: HEPATITIS B SURFACE ANTIBODY 2.6 (()); HEPATITIS B SURFACE ANTIGEN Negative (Negative)
[2020-10-06 17:40] LABS: HEPATITIS B CORE AB,TOTAL Positive (())
--- NOTE | 2020-10-06 17:54 | NUR ---
Patient had an uneventful day. Spent the day resting in bed. Reported a headache in the morning, pain medication given as requested. VSS 3.5L NC O2. IV CDI. No further needs expressed from the patient. Call light within reach
--- NOTE | 2020-10-06 21:55 | NUR ---
Resting quietly, talking on phone with daughter, Updated on plan of care, respirations even and unlabored, skin warm and dry, no s/s of hypo/hyperglycemia noted, continues on 1500ml fluid restriction, palacios in place draining cl yellow urine.
[2020-10-07 03:30] VITALS: BP 88/47; PULSE 86; TEMP 98
[2020-10-07 06:14] LABS: MEAN CELL VOLUME 106 fl (80.0-100.0); MEAN CORPUSCULAR HGB CONC 31 g/dl (33.0-37.0); MEAN PLATELET VOLUME 9.8 fl (7.4-10.4); PLATELET COUNT 135 K/mm3 (130-400); REDCELL DISTRIBUTION WIDTH-CV 15.9 % (11.5-14.5)
[2020-10-07 06:24] LABS: HEMATOCRIT 25.5 % (37.0-47.0); HEMOGLOBIN 7.8 g/dl (12.5-16.0); MEAN CORPUSCULAR HEMOGLOBIN 33 pg (27.0-31.0)
[2020-10-07 06:31] LABS: ALBUMIN 2.5 gm/dL (3.5-5.0); CALCIUM 8.3 mg/dL (8.4-10.2); CREATININE, serum 1.17 (0.52-1.25); POTASSIUM 4.7 mmol/L (3.4-5.0); TOTAL PROTEIN 5.5 gm/dL (6.4-8.2)
[2020-10-07 08:31] VITALS: BP 100/49; PULSE 82; TEMP 98.6
--- NOTE | 2020-10-07 09:18 | NUR ---
Initial visit; Patient thanked Technician Inventory Specialist for helping her with her food tray, listening and offering prayer for God's help and healing.
--- NOTE | 2020-10-07 10:06 | NUR ---
Pt assessment complete. Pt laying in bed upon entry, she is A/O x4. Her breathing is even and unlabored on 3L O2 via NC. Pt denies SOB. No pain at this time. Denies N/V. States she is tired this am. Neeraj MCCANN. Pt hopeful to go home. NO further needs at this time. Call light within reach.
[2020-10-07 11:43] VITALS: BP 103/45; PULSE 80; TEMP 98.3
[2020-10-07] MEDS ORDERED: OMNICEF 300MG300 MG PO (14:33)
[2020-10-07] MEDS ORDERED: LASIX 40MG TABL40 MG PO (14:34)
[2020-10-07] MEDS ORDERED: ADVOCATE BLOOD1 EAC1 MC (14:36)
[2020-10-07] MEDS ORDERED: SYNTHROID0.1 MG/TAB PO (14:46)
--- NOTE | 2020-10-07 15:39 | NUR ---
The patient is ready to d/c today, 10/07. The clinical team is recommending home health. MARIXA met with the patient to review d/c plan and re-admit. The patient states that she did get the wheelchair during her last hospital stay. She was set up with outpatient PT/OT. She states that she was not able to make it to her outpatient therapy appointments, because she was sick. She was approved for services through [facility] and has a personal fitness manager, Abdirashid Farris. She states that she receives services from him all the time. MARIXA contacted Connie at [facility], to inquire if they take Medicaid and can do SN/OT/PT. Larisa reports that Medicaid does not pay for PT/OT, but they allow for the patient to receive outpatient PT/OT, while they get penitentiary. Larisa reports that they should be able to take the patient. MARIXA informed the patient of this. She is agreeable to receive home health from [facility] and get outpatient PT/OT from [facility]. MARIXA faxed the referral and d/c orders to [facility]. MARIXA contacted [facility] outpatient therapy. The campus receptionist reports that they require a referral first and will then contact the patient to set up an appointment. MARIXA contacted and updated the patient's daughter, Denita, and reviewed d/c plan. Denita is agreeable to the d/c plan and confirmed the above information. The patient is to discharge today, 10/07, and receive home health services for penitentiary from [facility] and outpatient PT/OT from [facility]. No additional needs at this time.
[2020-10-07 15:48] VITALS: BP 89/36; PULSE 73; TEMP 98.4
--- NOTE | 2020-10-07 17:21 | NUR ---
Discharge paperwork and instructions reviewed with patient. All questions answered at this time. IV to RAC dc'd catheter tip intact. Pt wheeled out of facility at this time.
[2020-10-07 17:36] LABS: FOLATE (FOLIC ACID) 14.4 ng/mL (7.0-31.4)
[2020-10-08 04:21] LABS: CERULOPLASMIN 28 mg/dL (20-60)
--- NOTE | 2020-10-08 16:05 | NUR ---
Larisa, at [facility], contacted MARIXA. Larisa reports that their [place] office is saying that they are full now and do not think they can take the patient now. MARIXA informed Larisa how only custodial is being ordered. Larisa reports that she will notify their [place] office of this and try and get them to accept the patient for services.
[2020-10-08 20:39] LABS: HEPATITIS C VIRUS ANTIBODY Reactive (Negative)
[2020-10-09 11:47] LABS: HEPATITIS AB (HAV) IGG INDEX 0.93 Index (<=1.00)
[2020-10-09 12:48] LABS: ANTISMOOTH MUSCLE ANTIBODY Positive (Negative)
--- NOTE | 2020-10-09 17:02 | NUR ---
Larisa, at [facility], reports that they are able to accept the patient for nursing home services.
[2020-12-20] MEDS ORDERED: LIPITOR 40MG TA40 MG PO (14:14)
[2020-12-20] MEDS ORDERED: PROZAC40 MG PO (14:15)
[2020-12-20] MEDS ORDERED: KEPPRA250 MG PO (14:15)
[2020-12-20] MEDS ORDERED: CLARITIN 1010 MG/TAB PO (14:16)
[2020-12-20] MEDS ORDERED: GLUCOPHAGE500 MG/TAB PO (14:16)
[2020-12-20] MEDS ORDERED: SYNTHROID0.1 MG/TAB PO (14:17)
[2020-12-20] MEDS ORDERED: LYRICA 50MG CAP50 MG PO (14:19)
[2020-12-20] MEDS ORDERED: NATURE'S BLEND100 M2 PO (14:19)
[2020-12-20] MEDS ORDERED: NYSTATIN POWDER30 GM TOP (14:20)
== END 2020-10-07 17:22 | disposition home health service (06) | DRG 432 ==
LOC: COL.ER 20:56 → MEDICAL 23:06
PROVIDERS: Emergency Medicine; Internal Medicine; Internal Medicine Gastroenterology; Physician Assistant; ADMIT Hospitalist
PROC: 0W9G3ZZ Drainage of Peritoneal Cavity, Percutaneous Approach (ICD-10-PCS; principal; 2020-10-05)
DX: K74.60 Unspecified cirrhosis of liver (principal); J96.21 Acute and chronic respiratory failure with hypoxia; J18.9 Pneumonia, unspecified organism; R18.8 Other ascites; J44.0 Chronic obstructive pulmonary disease with (acute) lower respiratory infection; E66.2 Morbid (severe) obesity with alveolar hypoventilation; Z68.43 Body mass index [BMI] 50.0-59.9, adult; B19.20 Unspecified viral hepatitis C without hepatic coma; I11.0 Hypertensive heart disease with heart failure; I50.9 Heart failure, unspecified; I95.9 Hypotension, unspecified; E78.5 Hyperlipidemia, unspecified; I25.10 Atherosclerotic heart disease of native coronary artery without angina pectoris; E03.9 Hypothyroidism, unspecified; F17.210 Nicotine dependence, cigarettes, uncomplicated; E11.9 Type 2 diabetes mellitus without complications; D53.9 Nutritional anemia, unspecified; G40.909 Epilepsy, unspecified, not intractable, without status epilepticus; M19.072 Primary osteoarthritis, left ankle and foot; F32.9 Major depressive disorder, single episode, unspecified; Z79.84 Long term (current) use of oral hypoglycemic drugs; Z20.822 Contact with and (suspected) exposure to COVID-19; Z88.6 Allergy status to analgesic agent; Z99.81 Dependence on supplemental oxygen; Z95.5 Presence of coronary angioplasty implant and graft
CPT/HCPCS: 87522; 99223-AI; 99232-AI; 99233-AI; J0696; J1650; J7120; P9047

== ENCOUNTER 2020-10-15 08:19 | Outpatient (CLI) | payer MEDICAID ==
[~2020-10-15] VITALS: Ht 160 cm; Wt 148.5 kg
[~2020-10-15 08:19] MED LIST changes: +ADVOCATE BLOOD1 EAC1 MC; +OMNICEF 300MG300 MG PO; +SYNTHROID0.1 MG/TAB PO
[2020-10-15 09:03] VITALS: BP 150/81; PULSE 82
[2020-10-15 12:15] VITALS: BP 145/87; PULSE 88; TEMP 97.9
[2020-12-20] MEDS ORDERED: LIPITOR 40MG TA40 MG PO (14:14)
[2020-12-20] MEDS ORDERED: KEPPRA250 MG PO (14:15)
[2020-12-20] MEDS ORDERED: PROZAC40 MG PO (14:15)
[2020-12-20] MEDS ORDERED: GLUCOPHAGE500 MG/TAB PO (14:16)
[2020-12-20] MEDS ORDERED: CLARITIN 1010 MG/TAB PO (14:16)
[2020-12-20] MEDS ORDERED: SYNTHROID0.1 MG/TAB PO (14:17)
[2020-12-20] MEDS ORDERED: LYRICA 50MG CAP50 MG PO (14:19)
[2020-12-20] MEDS ORDERED: NATURE'S BLEND100 M2 PO (14:19)
[2020-12-20] MEDS ORDERED: NYSTATIN POWDER30 GM TOP (14:20)
== END 2020-10-21 16:05 | disposition home or self-care (01) ==
LOC: COL.RAD
DX: R18.8 Other ascites (principal)
CPT/HCPCS: P9047

== ENCOUNTER 2020-11-02 21:25 | Observation (INO) | payer MEDICAID ==
[~2020-11-02] VITALS: Ht 160 cm; Wt 136.4 kg
[2020-11-02 21:59] LABS: BASO # 0.1 (0.0-0.2); EOS # 0.2 (0.0-0.7); EOS % 3.8 % (0-4.0); GRAN # 3.4 (1.4-6.5); GRAN % 59.6 % (42.2-75.2); HEMOGLOBIN 10.5 g/dl (12.5-16.0); LYMPH # 1.3 (1.2-3.4); LYMPH % 22.4 % (20.0-51.0); MEAN CELL VOLUME 103 fl (80.0-100.0); MEAN CORPUSCULAR HEMOGLOBIN 32 pg (27.0-31.0); MEAN CORPUSCULAR HGB CONC 31 g/dl (33.0-37.0); MEAN PLATELET VOLUME 9.9 fl (7.4-10.4); MONO # 0.7 (0.1-0.6); MONO % 12.9 % (1.7-9.3); PLATELET COUNT 219 K/mm3 (130-400); RED BLOOD COUNT 3.25 M/mm3 (4.10-5.30); REDCELL DISTRIBUTION WIDTH-CV 14.8 % (11.5-14.5)
[2020-11-02 22:01] LABS: HEMATOCRIT 33.4 % (37.0-47.0)
[2020-11-02 22:02] LABS: ALBUMIN 2.9 gm/dL (3.5-5.0); BILIRUBIN,TOTAL 0.6 mg/dL (0.0-1.0); CALCIUM 8.5 mg/dL (8.4-10.2); CREATININE, serum 1.44 (0.52-1.25); POTASSIUM 5.3 mmol/L (3.4-5.0); TOTAL PROTEIN 6.7 gm/dL (6.4-8.2)
[2020-11-02 22:32] LABS: TROPONIN-I < 0.012 ng/mL (0.000-0.035)
[2020-11-02 23:06] LABS: PH 6 (5-8); SQUAMOUS EPITHELIAL None Seen /hpf; URINE APPEARANCE Clear; URINE BACTERIA None Seen /hpf; URINE BILIRUBIN Negative (NEGATIVE); URINE BLOOD Negative (NEGATIVE); URINE COLOR Yellow; URINE GLUCOSE Negative (NEGATIVE); URINE KETONE Negative (NEGATIVE); URINE LEUKOCYTE ESTERASE Negative (NEGATIVE); URINE NITRATE Negative (NEGATIVE); URINE PROTEIN(semi-quant) Negative (NEGATIVE); URINE RBC 0-2 /hpf; URINE UROBILINOGEN >=4.0 mg/dL (NEGATIVE); URINE WBC 0-2 /hpf
[2020-11-02 23:09] LABS: PROTHROMBIN TIME 11.5 SECONDS (9.7-12.8)
[2020-11-02 23:13] LABS: COLLECTION METHOD CLEAN CATCH
[2020-11-02] MEDS ORDERED: ALDACTONE 100M100 MG PO (23:30)
[2020-11-02] MEDS ORDERED: LASIX 40MG TABL40 MG PO (23:31)
[2020-11-02] MEDS ORDERED: K-DUR20 MEQ PO (23:33)
[2020-11-02] MEDS ORDERED: NORCO 325 MG-51 TAB PO (23:35)
[2020-11-02] MEDS ORDERED: FOLIC ACID 11 MG/TA1 PO (23:35)
--- NOTE | 2020-11-03 01:34 | NUR ---
Awake, alert, oriented x 4, able to make needs known, palacios per gravity, no s/s of hypo/hyper glycemia, VS stable, telemetry in use, O2@2L per NC, NPO status, updated on plan of care.
[2020-11-03 03:27] VITALS: BP 111/50; PULSE 74; TEMP 98.1
--- NOTE | 2020-11-03 05:54 | NUR ---
DURING 0200 BREATHING TX ASKED PT ABOUT RESPIRATORY HISTORY AND IF PT WEARS A CPAP/BIPAP AT HOME STATED NO CPAP OR BIPAP AT HOME, JUST HOME 02 AT 2 LPM ALL THE TIME AND 3 WITH ACTIVITY. NO DISTRESS NOTED AT THIS TIME
[2020-11-03 06:23] LABS: BASO # 0.1 (0.0-0.2); BASO % 1.4 % (0.0-2.0); EOS # 0.2 (0.0-0.7); EOS % 3.7 % (0-4.0); GRAN # 2.8 (1.4-6.5); GRAN % 55.2 % (42.2-75.2); LYMPH # 1.4 (1.2-3.4); LYMPH % 26.8 % (20.0-51.0); MEAN CELL VOLUME 103 fl (80.0-100.0); MEAN CORPUSCULAR HGB CONC 31 g/dl (33.0-37.0); MONO # 0.6 (0.1-0.6); MONO % 12.3 % (1.7-9.3); PLATELET COUNT 199 K/mm3 (130-400); RED BLOOD COUNT 3.07 M/mm3 (4.10-5.30); REDCELL DISTRIBUTION WIDTH-CV 14.9 % (11.5-14.5)
[2020-11-03 06:26] LABS: HEMATOCRIT 31.6 % (37.0-47.0); HEMOGLOBIN 9.9 g/dl (12.5-16.0); MEAN CORPUSCULAR HEMOGLOBIN 32 pg (27.0-31.0)
[2020-11-03 06:27] LABS: CALCIUM 8.4 mg/dL (8.4-10.2); CREATININE, serum 1.46 (0.52-1.25); POTASSIUM 5.2 mmol/L (3.4-5.0)
[2020-11-03 07:09] VITALS: BP 115/44; PULSE 72; TEMP 98.2
--- NOTE | 2020-11-03 09:00 | NUR ---
Agree with student nurses assessment. Patient sleeping, but easily awakened with verbal commmand. A&Ox4. VSS. IV CDI. Patient stating that she is tired and is hungry. Patient NPO for procedure. No further needs expressed from the patient. Call light within reach.
--- NOTE | 2020-11-03 11:20 | NUR ---
Plan is to return home in [place] with DTKassy Patel as care support. SW met with patient about care and Dc plan. Amanda . Patient reports she and her DTR and son in-law reside together. Patient idnicated that she has a nursing coming to the home but does not remember the name of the provider. Patient reports that she uses a walker and a wheelchair for mobility. Patient reports that she richmond s a commode. Patient indicated that her caregiver will give her a ride home. Patient shares that her PCP is Dr. Vázquez and she obtains medications from [place] and is on 02 on 3 liters. Patient denies having any other concerns for care. Reports that DTR is DPOA but unsure on where the ppw is. Will continue to follow for care.
--- NOTE | 2020-11-03 13:44 | NUR ---
Patient to room 307 by wheelchair from a procedure. A&Ox4. VSS 2L NC O2. IV CDI. VS monitored. Patient ordering lunch. No further needs expressed from the patient. Call light within reach
--- NOTE | 2020-11-03 14:05 | NUR ---
Patient returned to unit from procedure. She was left in bed with blood pressure cuff and puls oximeter attached for 15 minute interval monitering. Blood sugar was checked and was 76 at this time. Patient was in the process of ordering her lunch
--- NOTE | 2020-11-03 14:27 | NUR ---
WUS[facility] charting reviewed by this instructor, agree with assessment and charting.
[2020-11-03 16:06] VITALS: BP 102/31; BP 99/27; PULSE 72; TEMP 97.7
--- NOTE | 2020-11-03 17:30 | NUR ---
Patient sleeping in bed. Had a paracentesis and tolerated well. Easily awakened with verbal command, A&Ox3. VSS. IV CDI, fluids infusing. Denies pain and reposts some discomfort in the abdomen. [place]ard, clear yellow. No further needs expressed from the patient. Call light within reach
[2020-11-03 19:07] VITALS: BP 103/36; PULSE 70; TEMP 98
--- NOTE | 2020-11-03 19:22 | NUR ---
Patient awake, alert, oriented x 4, tolerating albumin infusion w/o issue- [id number], K level 5.0, B/P 103/36- Call placed to Ree Solano- it is patient's choice to d/c after albumin completes since it will be late or wait until am, discussed with patient- patient chooses to discharge after completion of albumin, removed palacios at this time- balloon intact, tolerated well.
--- NOTE | 2020-11-03 22:11 | NUR ---
removed IV to LAC w/o issue, tip intact, patient is awake, alert, oriented x 4, able to make all needs known, discharge instructions given- verbalized understanding.
[2020-11-03 22:28] VITALS: BP 106/43; PULSE 84; TEMP 98
--- NOTE | 2020-11-03 23:39 | NUR ---
pATENT ESCORTED TO FAMILY CAR BY WHEELCHAIR WITH ALL BELONGINGS FOR DISCHARGE.
[2020-12-20] MEDS ORDERED: LIPITOR 40MG TA40 MG PO (14:14)
[2020-12-20] MEDS ORDERED: KEPPRA250 MG PO (14:15)
[2020-12-20] MEDS ORDERED: PROZAC40 MG PO (14:15)
[2020-12-20] MEDS ORDERED: GLUCOPHAGE500 MG/TAB PO (14:16)
[2020-12-20] MEDS ORDERED: CLARITIN 1010 MG/TAB PO (14:16)
[2020-12-20] MEDS ORDERED: SYNTHROID0.1 MG/TAB PO (14:17)
[2020-12-20] MEDS ORDERED: LYRICA 50MG CAP50 MG PO (14:19)
[2020-12-20] MEDS ORDERED: NATURE'S BLEND100 M2 PO (14:19)
[2020-12-20] MEDS ORDERED: NYSTATIN POWDER30 GM TOP (14:20)
== END 2020-11-03 22:00 | disposition home or self-care (01) ==
LOC: COL.ER 21:25 → MEDICAL 23:41
PROVIDERS: Nurse Practitioner Family; Nurse Practitioner Primary Care
DX: K74.60 Unspecified cirrhosis of liver (principal); R18.8 Other ascites; B19.20 Unspecified viral hepatitis C without hepatic coma; I10 Essential (primary) hypertension; E78.5 Hyperlipidemia, unspecified; I25.10 Atherosclerotic heart disease of native coronary artery without angina pectoris; J44.9 Chronic obstructive pulmonary disease, unspecified; N17.9 Acute kidney failure, unspecified; J96.11 Chronic respiratory failure with hypoxia; E87.5 Hyperkalemia; E03.9 Hypothyroidism, unspecified; E11.9 Type 2 diabetes mellitus without complications; D53.9 Nutritional anemia, unspecified; F32.9 Major depressive disorder, single episode, unspecified; R53.81 Other malaise; G40.909 Epilepsy, unspecified, not intractable, without status epilepticus; Z88.5 Allergy status to narcotic agent; Z79.82 Long term (current) use of aspirin; Z79.84 Long term (current) use of oral hypoglycemic drugs; E66.2 Morbid (severe) obesity with alveolar hypoventilation; F17.210 Nicotine dependence, cigarettes, uncomplicated; Z88.6 Allergy status to analgesic agent
CPT/HCPCS: G0378; J1940; P9047

== ENCOUNTER 2020-12-09 17:21 | Inpatient (IN) | payer MEDICAID ==
[~2020-12-09] VITALS: Ht 160 cm; Wt 159.1 kg
[~2020-12-09 17:21] MED LIST changes: +ALDACTONE 100M100 MG PO; +K-DUR20 MEQ PO; +NORCO 325 MG-51 TAB PO
[2020-12-09 18:22] LABS: BASO # 0.1 (0.0-0.2); BASO % 0.6 % (0.0-2.0); EOS # 0.2 (0.0-0.7); EOS % 2.1 % (0-4.0); GRAN # 5.7 (1.4-6.5); HEMOGLOBIN 10.2 g/dl (12.5-16.0); LYMPH # 1.1 (1.2-3.4); LYMPH % 13.4 % (20.0-51.0); MEAN CELL VOLUME 101 fl (80.0-100.0); MEAN CORPUSCULAR HEMOGLOBIN 32 pg (27.0-31.0); MEAN CORPUSCULAR HGB CONC 32 g/dl (33.0-37.0); MEAN PLATELET VOLUME 9.6 fl (7.4-10.4); MONO # 0.9 (0.1-0.6); MONO % 11.3 % (1.7-9.3); PLATELET COUNT 236 K/mm3 (130-400); RED BLOOD COUNT 3.19 M/mm3 (4.10-5.30)
[2020-12-09 18:30] LABS: HEMATOCRIT 32.2 % (37.0-47.0)
[2020-12-09 18:31] LABS: ALANINE AMINOTRANSFERASE 13 U/L (4-34); ALBUMIN 2.7 gm/dL (3.5-5.0); ALKALINE PHOSPHATASE 117 U/L (50-136); ANION GAP 3 mmol/L (7-16); AST,SGOT 33 U/L (15-37); BILIRUBIN,TOTAL 0.5 mg/dL (0.0-1.0); BLOOD UREA NITROGEN 37 mg/dL (7-17); CALCIUM 8.1 mg/dL (8.4-10.2); CARBON DIOXIDE 29 mmol/L (22-30); CHLORIDE 104 mmol/L (98-107); CREATININE, serum 1.47 (0.52-1.25); GLUCOSE 123 mg/dL (74-106); LIPASE 95 U/L (23-300); POTASSIUM 4.7 mmol/L (3.4-5.0); SODIUM 136 mmol/L (137-145); TOTAL PROTEIN 6.3 gm/dL (6.4-8.2)
[2020-12-09 18:49] LABS: PROTHROMBIN TIME 11.5 SECONDS (9.7-12.8)
[2020-12-09 18:52] LABS: PARTIAL THROMBOPLASTIN TIME 31.6 SECONDS (26.0-37.0)
[2020-12-09 19:03] LABS: TROPONIN-I < 0.012 ng/mL (0.000-0.035)
[2020-12-09] MEDS ORDERED: ANORO IH (20:55)
[2020-12-09] MEDS ORDERED: FOLIC ACID 11 MG/TA1 PO (20:55)
[2020-12-09 21:06] VITALS: BP 107/26; PULSE 94; TEMP 98.3
--- NOTE | 2020-12-09 21:29 | NUR ---
Pt. arrived to the floor via wheelchair. Pt. is a&OX3, assessment complete. INT to Lt, ac patent. Pt. denies pain or other needs, call light within reach.
[2020-12-09] MEDS ORDERED: LYRICA 50MG CAP50 MG PO (21:40)
[2020-12-09 23:16] VITALS: BP 102/36; PULSE 70; TEMP 98
[2020-12-10 03:18] VITALS: BP 97/43; PULSE 72; TEMP 97.9
--- NOTE | 2020-12-10 07:00 | NUR ---
Pt resting with eyes closed, even non labored breathing
[2020-12-10 07:19] VITALS: BP 90/35; PULSE 74; TEMP 98.7
[2020-12-10 07:27] LABS: BASO # 0.1 (0.0-0.2); BASO % 0.8 % (0.0-2.0); EOS # 0.2 (0.0-0.7); EOS % 2.9 % (0-4.0); GRAN # 3.8 (1.4-6.5); GRAN % 61.8 % (42.2-75.2); LYMPH # 1.3 (1.2-3.4); LYMPH % 20.1 % (20.0-51.0); MEAN CELL VOLUME 103 fl (80.0-100.0); MEAN CORPUSCULAR HGB CONC 31 g/dl (33.0-37.0); MONO # 0.9 (0.1-0.6); MONO % 13.8 % (1.7-9.3); PLATELET COUNT 212 K/mm3 (130-400); RED BLOOD COUNT 2.55 M/mm3 (4.10-5.30)
[2020-12-10 07:28] LABS: HEMATOCRIT 26.2 % (37.0-47.0); HEMOGLOBIN 8.2 g/dl (12.5-16.0); MEAN CORPUSCULAR HEMOGLOBIN 32 pg (27.0-31.0)
[2020-12-10 07:44] LABS: CALCIUM 7.6 mg/dL (8.4-10.2); CREATININE, serum 1.53 (0.52-1.25); POTASSIUM 4.6 mmol/L (3.4-5.0)
--- NOTE | 2020-12-10 08:50 | NUR ---
Pt resting with eyes closed, even non labored breathing
--- NOTE | 2020-12-10 10:00 | NUR ---
Pt awake. Assisted to the restroom x1 assist with walker. Pt did well and was steady. Has complaints of pain in her hip which she states is chronic. Received call stating the paracentesis would be done soon.
--- NOTE | 2020-12-10 10:12 | NUR ---
Initial visit; Patient thanked Membership Secretary for looking in her her and offering God's blessings. Membership Secretary will follow up while patient is hospitalized.
--- NOTE | 2020-12-10 11:20 | NUR ---
Paracentesis in process
[2020-12-10 12:47] VITALS: BP 80/20; PULSE 66; TEMP 98
--- NOTE | 2020-12-10 12:58 | NUR ---
Paracentesis in process
[2020-12-10 14:25] LABS: PERITONEAL -POLYMORPHONUCLEAR 8.3 % (0-25); PERITONEAL FLUID RBC 1000 /mm3 (0-0)
--- NOTE | 2020-12-10 16:17 | NUR ---
Pt resting with eyes closed, even non labored breathing
[2020-12-10 16:48] VITALS: BP 95/31; PULSE 66; TEMP 98.9
--- NOTE | 2020-12-10 16:50 | NUR ---
Hydraulic Press In Operator attempted to meet with the patient to complete intake but the patient was sleeping and hard to rouse. SW contacted the patient's daughter, Denita to complete intake. The patient lives at home in [place] with Denita is DPOA-HC, forms in EMR. The patient has support with ADLs from [address] [place] [address]. The patient has a walker, wheelchair, commode and is on oxygen at baseline. [facility] provides oxygen supplies. The patient's PCP is Dr. Townsend and patient receives medications from [facility] in [place]. The plan is for the patient to return home at discharge. *Discharge disposition at this time: Home with daughter
[2020-12-10 19:58] VITALS: BP 103/43; PULSE 71; TEMP 98.1
--- NOTE | 2020-12-10 21:15 | NUR ---
Pt. laying in bed at this time. Pt. is A&OX3, assessment complete. INT to lt. ac patent. Pt. was incontinent of urine, full bed change completed and full bed bath given. Pt. denies pain or other needs, call light within reach.
[2020-12-10 23:43] VITALS: BP 103/37; PULSE 61; TEMP 98.1
[2020-12-11 04:18] VITALS: BP 87/31; PULSE 65; TEMP 98.1
[2020-12-11 06:33] LABS: CALCIUM 7.6 mg/dL (8.4-10.2); CREATININE, serum 1.57 (0.52-1.25); POTASSIUM 4.9 mmol/L (3.4-5.0)
[2020-12-11 07:15] VITALS: BP 94/35; PULSE 61; TEMP 98.1
[2020-12-11 07:46] LABS: BASO % 0.6 % (0.0-2.0); EOS # 0.2 (0.0-0.7); EOS % 3.2 % (0-4.0); GRAN # 3.3 (1.4-6.5); GRAN % 61.2 % (42.2-75.2); LYMPH # 1.1 (1.2-3.4); LYMPH % 21.2 % (20.0-51.0); MEAN CELL VOLUME 103 fl (80.0-100.0); MEAN CORPUSCULAR HGB CONC 31 g/dl (33.0-37.0); MEAN PLATELET VOLUME 9.8 fl (7.4-10.4); MONO # 0.7 (0.1-0.6); MONO % 13.1 % (1.7-9.3); PLATELET COUNT 182 K/mm3 (130-400); RED BLOOD COUNT 2.51 M/mm3 (4.10-5.30); REDCELL DISTRIBUTION WIDTH-CV 13.8 % (11.5-14.5)
[2020-12-11 07:51] LABS: HEMATOCRIT 25.8 % (37.0-47.0); HEMOGLOBIN 8.1 g/dl (12.5-16.0); MEAN CORPUSCULAR HEMOGLOBIN 32 pg (27.0-31.0)
--- NOTE | 2020-12-11 08:19 | NUR ---
Pt reports doing well this morning. She is tired as she stated that she did not get much sleep last night. Reports feeling better than yesterday since the paracentesis. She has had and tolerated all her breakfast. No needs at this time, will continue to monitor
[2020-12-11 12:00] VITALS: BP 87/33; PULSE 67; TEMP 98.5
[2020-12-11 16:36] VITALS: BP 88/33; PULSE 60; TEMP 97.7
--- NOTE | 2020-12-11 18:25 | NUR ---
Pt has done well throughout the day. She continues to be a standby assist to the restroom with a walker. Complaints of pain in her right hip which oral pain medications takes care of. Pt is hopeful to get to go home tomorrow. Minimal needs
[2020-12-11 21:46] VITALS: BP 108/46; PULSE 66
[2020-12-11 23:18] VITALS: BP 98/35; PULSE 69; TEMP 97.5
[2020-12-12 04:42] VITALS: BP 96/42; PULSE 65; TEMP 97.6
--- NOTE | 2020-12-12 06:35 | NUR ---
Patient had an uneventful night. Ambulating with walker and standby assist. Repositioned throughout the night. Soft blood pressures.
[2020-12-12 06:48] LABS: MEAN CELL VOLUME 102 fl (80.0-100.0); MEAN CORPUSCULAR HGB CONC 31 g/dl (33.0-37.0); MEAN PLATELET VOLUME 10.2 fl (7.4-10.4); PLATELET COUNT 149 K/mm3 (130-400); RED BLOOD COUNT 2.25 M/mm3 (4.10-5.30); REDCELL DISTRIBUTION WIDTH-CV 13.6 % (11.5-14.5)
[2020-12-12 06:50] LABS: HEMOGLOBIN 7.2 g/dl (12.5-16.0); MEAN CORPUSCULAR HEMOGLOBIN 32 pg (27.0-31.0)
[2020-12-12 06:55] LABS: CALCIUM 7.9 mg/dL (8.4-10.2); CREATININE, serum 1.71 (0.52-1.25); POTASSIUM 4.7 mmol/L (3.4-5.0)
[2020-12-12 07:06] VITALS: BP 94/35; PULSE 63; TEMP 98.1
[2020-12-12 13:39] VITALS: BP 90/38; PULSE 50; TEMP 97.7
[2020-12-12 15:51] VITALS: BP 99/47; PULSE 61; TEMP 98.1
[2020-12-12 16:41] LABS: HEMATOCRIT 23.6 % (37.0-47.0); HEMOGLOBIN 7.3 g/dl (12.5-16.0)
--- NOTE | 2020-12-12 19:11 | NUR ---
Patient resting in bed at this time. Patient is able to get up to bathroom with SBA, no symptoms of hypotension noted while up. 24 hour urine started. Patient c/o some back pain today, administered PRN pain medication per order. Denies further needs, call light within reach.
[2020-12-12 19:32] VITALS: BP 106/39; PULSE 63; TEMP 97.4
[2020-12-13 00:04] VITALS: BP 82/39; PULSE 65; TEMP 97.6
[2020-12-13 00:32] VITALS: BP 92/58
[2020-12-13 04:34] VITALS: BP 88/52; PULSE 64; TEMP 98.2
--- NOTE | 2020-12-13 05:04 | NUR ---
Patient had no complaints of pain throughout the shift. Getting up to the bathroom with standby assist and walker. Continuing the 24 hour urine collection. Blood pressure are still soft. Will report off to day shift.
[2020-12-13 07:06] LABS: BASO % 0.6 % (0.0-2.0); EOS # 0.2 (0.0-0.7); EOS % 3.6 % (0-4.0); GRAN # 3.1 (1.4-6.5); GRAN % 65.3 % (42.2-75.2); LYMPH # 0.9 (1.2-3.4); LYMPH % 18.2 % (20.0-51.0); MEAN CELL VOLUME 103 fl (80.0-100.0); MEAN CORPUSCULAR HGB CONC 31 g/dl (33.0-37.0); MEAN PLATELET VOLUME 10.1 fl (7.4-10.4); MONO # 0.6 (0.1-0.6); MONO % 12.1 % (1.7-9.3); PLATELET COUNT 160 K/mm3 (130-400); RED BLOOD COUNT 2.34 M/mm3 (4.10-5.30); REDCELL DISTRIBUTION WIDTH-CV 13.6 % (11.5-14.5)
[2020-12-13 07:08] LABS: HEMATOCRIT 24.1 % (37.0-47.0); HEMOGLOBIN 7.4 g/dl (12.5-16.0); MEAN CORPUSCULAR HEMOGLOBIN 32 pg (27.0-31.0)
[2020-12-13 07:12] LABS: ALBUMIN 2.5 gm/dL (3.5-5.0); BILIRUBIN,TOTAL 0.3 mg/dL (0.0-1.0); CALCIUM 7.8 mg/dL (8.4-10.2); CREATININE, serum 1.62 (0.52-1.25); POTASSIUM 4.9 mmol/L (3.4-5.0); TOTAL PROTEIN 5.3 gm/dL (6.4-8.2)
[2020-12-13 08:35] VITALS: BP 81/36; PULSE 64; TEMP 98.3
--- NOTE | 2020-12-13 09:00 | NUR ---
Patient up with SBA to bathroom, patient is continent of bowel and bladder. Patient denies pain or SOA, no further needs, call light within reach.
[2020-12-13] MEDS ORDERED: THIAMINE 1100 MG/TAB PO (09:15)
--- NOTE | 2020-12-13 12:00 | NUR ---
Discharge teaching completed with patient and caregiver. Discussed discharge appointments, medications, and follow up lab work. Patient and caregiver expressed understanding. INT had been removed by patient, site is CDI, no induration or pain. Patient confirmed all belongings were gathered and was escorted to ED entrance where she entered a private vehicle.
[2020-12-13 13:02] LABS: CREATININE, serum 1.58 (0.52-1.25)
[2020-12-13 13:04] LABS: URINE TOTAL VOLUME 1825 mL
--- NOTE | 2020-12-13 14:53 | NUR ---
The patient to discharge home today, 12/13 with home health, snf services (pending acceptance). It Compliance Analyst met with the patient to review the discharge plan. The patient was agreeable to home health. The patient has Medicaid and they will only cover snf services. The patient has had [facility] past. MARIXA faxed referral and discharge orders to [facility]. MARIXA contacted Larisa with [facility]. Larisa reports they recently discharged the patient from services. Larisa states the patient missed 13 visit and only had 5 visits during the course of care. They will review the referral then inform MARIXA of decision. MARIXA attempted to contact the patient's daughter with the above information, could not leave message. There are no additional needs at this time.
[2020-12-20] MEDS ORDERED: LIPITOR 40MG TA40 MG PO (14:14)
[2020-12-20] MEDS ORDERED: KEPPRA250 MG PO (14:15)
[2020-12-20] MEDS ORDERED: PROZAC40 MG PO (14:15)
[2020-12-20] MEDS ORDERED: CLARITIN 1010 MG/TAB PO (14:16)
[2020-12-20] MEDS ORDERED: GLUCOPHAGE500 MG/TAB PO (14:16)
[2020-12-20] MEDS ORDERED: SYNTHROID0.1 MG/TAB PO (14:17)
[2020-12-20] MEDS ORDERED: LYRICA 50MG CAP50 MG PO (14:19)
[2020-12-20] MEDS ORDERED: NATURE'S BLEND100 M2 PO (14:19)
[2020-12-20] MEDS ORDERED: NYSTATIN POWDER30 GM TOP (14:20)
== END 2020-12-13 12:10 | disposition home or self-care (01) | DRG 433 ==
LOC: COL.ER 17:21 → SURG 20:09
PROVIDERS: Emergency Medicine; Internal Medicine Nephrology; Physician Assistant; Student in an Organized Health Care Education/Training Program; ADMIT Family Medicine
PROC: 0W9G3ZZ Drainage of Peritoneal Cavity, Percutaneous Approach (ICD-10-PCS; 2020-12-10)
PROC: 0W9G3ZZ Drainage of Peritoneal Cavity, Percutaneous Approach (ICD-10-PCS; principal; 2020-12-11)
DX: K74.69 Other cirrhosis of liver (principal); K76.6 Portal hypertension; N17.9 Acute kidney failure, unspecified; J96.11 Chronic respiratory failure with hypoxia; E87.1 Hypo-osmolality and hyponatremia; G47.00 Insomnia, unspecified; F32.9 Major depressive disorder, single episode, unspecified; G40.909 Epilepsy, unspecified, not intractable, without status epilepticus; D64.9 Anemia, unspecified; J44.9 Chronic obstructive pulmonary disease, unspecified; E03.9 Hypothyroidism, unspecified; R53.81 Other malaise; B19.20 Unspecified viral hepatitis C without hepatic coma; N18.9 Chronic kidney disease, unspecified; E78.5 Hyperlipidemia, unspecified; E11.22 Type 2 diabetes mellitus with diabetic chronic kidney disease; E66.01 Morbid (severe) obesity due to excess calories
CPT/HCPCS: 99223-AI; 99233-AI; 99239; G0378; J7030; J7050; P9047

== ENCOUNTER → 2020-12-20 | Outpatient (CLI) | payer MEDICAID ==
[~2020-12-20] VITALS: Ht 160 cm; Wt 138.0 kg
[~2020-12-20] MED LIST changes: +LYRICA 50MG CAP50 MG PO; +NATURE'S BLEND100 M2 PO; +NYSTATIN POWDER30 GM TOP; +ONE-A-DAY ESSE1 EACH PO; +PROZAC40 MG PO; +THIAMINE 1100 MG/TAB PO; +VITAMIND3 5000 PO
[2020-12-20 13:40] VITALS: BP 114/64; PULSE 71
[2020-12-20 15:30] VITALS: BP 105/60; PULSE 71
--- NOTE | 2020-12-20 15:45 | NUR ---
pt out to waiting room per wheelchair. Denies complaints at this time.
== END ==
LOC: COL.RAD 12:52
DX: K74.60 Unspecified cirrhosis of liver (principal)
CPT/HCPCS: 19804

== ENCOUNTER 2021-01-08 17:00 | Emergency (ER) | payer MEDICAID ==
[~2021-01-08] VITALS: Ht 160 cm; Wt 145.5 kg
[~2021-01-08 17:00] MED LIST changes: -ONE-A-DAY ESSE1 EACH PO; -VITAMIND3 5000 PO
[2021-01-08 17:11] VITALS: TEMP 98.2
[2021-01-08 18:10] LABS: BASO # 0.1 (0.0-0.2); BASO % 0.9 % (0.0-2.0); EOS # 0.1 (0.0-0.7); EOS % 1.4 % (0-4.0); GRAN # 7.5 (1.4-6.5); GRAN % 78.8 % (42.2-75.2); HEMOGLOBIN 11.1 g/dl (12.5-16.0); MEAN CELL VOLUME 102 fl (80.0-100.0); MEAN CORPUSCULAR HEMOGLOBIN 32 pg (27.0-31.0); MEAN CORPUSCULAR HGB CONC 31 g/dl (33.0-37.0); MEAN PLATELET VOLUME 9.8 fl (7.4-10.4); MONO # 0.7 (0.1-0.6); MONO % 7.5 % (1.7-9.3); PLATELET COUNT 259 K/mm3 (130-400); REDCELL DISTRIBUTION WIDTH-CV 14.3 % (11.5-14.5)
[2021-01-08 18:18] LABS: INR 1.1 (0.8-3.0); PROTHROMBIN TIME 11.9 SECONDS (9.7-12.8)
[2021-01-08 18:19] LABS: HEMATOCRIT 35.6 % (37.0-47.0)
[2021-01-08 18:20] LABS: BILIRUBIN,TOTAL 1.2 mg/dL (0.0-1.0); CALCIUM 8.5 mg/dL (8.4-10.2); CREATININE, serum 1.6 (0.52-1.25); MAGNESIUM 1.8 mg/dL (1.6-2.3); POTASSIUM 4.1 mmol/L (3.4-5.0)
[2021-01-08 20:00] VITALS: BP 93/48; PULSE 78
== END 2021-01-08 20:00 | disposition home or self-care (01) ==
LOC: COL.ER 17:00
PROVIDERS: Physician Assistant
DX: R18.8 Other ascites (principal); N17.9 Acute kidney failure, unspecified; R60.1 Generalized edema; K74.60 Unspecified cirrhosis of liver; E11.9 Type 2 diabetes mellitus without complications; E03.9 Hypothyroidism, unspecified; I10 Essential (primary) hypertension; E78.5 Hyperlipidemia, unspecified; I25.10 Atherosclerotic heart disease of native coronary artery without angina pectoris; J44.9 Chronic obstructive pulmonary disease, unspecified; F32.9 Major depressive disorder, single episode, unspecified; G40.909 Epilepsy, unspecified, not intractable, without status epilepticus; Z79.899 Other long term (current) drug therapy; Z79.890 Hormone replacement therapy; Z79.84 Long term (current) use of oral hypoglycemic drugs; Z87.891 Personal history of nicotine dependence
CPT/HCPCS: 19804

== ENCOUNTER 2021-01-13 11:37 | Outpatient (CLI) | payer MEDICAID ==
[2021-01-13 12:05] VITALS: BP 103/64; PULSE 71
[2021-01-13 19:30] VITALS: BP 115/60; PULSE 70
== END 2021-01-13 19:51 | disposition home or self-care (01) ==
LOC: COL.RAD 11:37
DX: K74.60 Unspecified cirrhosis of liver (principal); R18.8 Other ascites
CPT/HCPCS: P9047

== ENCOUNTER 2021-01-27 12:19 | Outpatient (CLI) | payer MEDICAID ==
[~2021-01-27] VITALS: Ht 160 cm; Wt 110.3 kg
[2021-01-27] MEDS ORDERED: VITAMIND3 5000 PO (12:35)
[2021-01-27 12:36] VITALS: BP 105/66; PULSE 76
[2021-01-27 16:00] VITALS: BP 92/58; PULSE 72
== END 2021-01-27 15:08 ==
LOC: COL.RAD 12:19
DX: K74.60 Unspecified cirrhosis of liver (principal); B18.2 Chronic viral hepatitis C
CPT/HCPCS: P9047

== ENCOUNTER → 2021-02-03 | Outpatient (CLI) | payer MEDICAID ==
[~2021-02-03] MED LIST changes: +ONE-A-DAY ESSE1 EACH PO; +VITAMIND3 5000 PO
== END ==
LOC: COL.RAD 11:45
DX: K74.60 Unspecified cirrhosis of liver (principal); B18.2 Chronic viral hepatitis C

== ENCOUNTER 2021-02-11 11:18 | Outpatient (CLI) | payer MEDICAID ==
[~2021-02-11] VITALS: Ht 160 cm; Wt 115.5 kg
[~2021-02-11 11:18] MED LIST changes: -ONE-A-DAY ESSE1 EACH PO
[2021-02-11] MEDS ORDERED: ONE-A-DAY ESSE1 EACH PO (11:51)
[2021-02-11 11:53] VITALS: BP 103/57; PULSE 67
[2021-02-11 14:28] VITALS: BP 79/34; PULSE 64
[2021-02-11 15:40] VITALS: BP 96/39; PULSE 70
--- NOTE | 2021-02-11 16:57 | NUR ---
Pt tolerated albumin infusion with no issues. Daughter called to brick picker pt, states she is having car trouble. Unit number given to daughter, she will call when she arrives to brick picker pt. Pt sleeping, INT will be left in place until DC. Call light in reach. Daughter Denita [phone]
[2021-02-11 17:40] VITALS: BP 106/45; PULSE 69
== END 2021-02-11 17:50 | disposition home or self-care (01) ==
LOC: COL.RAD 11:18
DX: K74.60 Unspecified cirrhosis of liver (principal); B18.2 Chronic viral hepatitis C
CPT/HCPCS: P9047